=== PATIENT | female | born 1945 | race Caucasian/White ===

== ENCOUNTER → 2021-12-05 08:57 | Outpatient (BNVA) | payer MEDICARE, SELFPAY | PROVIDERS: PCP Internal Medicine; Visit Provider Psychiatry & Neurology Neurology | DX: R25.1 Tremor, unspecified (principal); R26.9 Unspecified abnormalities of gait and mobility; M47.812 Spondylosis without myelopathy or radiculopathy, cervical region; M47.816 Spondylosis without myelopathy or radiculopathy, lumbar region | CPT/HCPCS: 99202 ==

== ENCOUNTER → 2022-01-05 09:36 | Outpatient (BNVA) | payer MEDICARE, SELFPAY | PROVIDERS: PCP Internal Medicine; Visit Provider Psychiatry & Neurology Neurology | DX: M47.812 Spondylosis without myelopathy or radiculopathy, cervical region (principal); M47.816 Spondylosis without myelopathy or radiculopathy, lumbar region; R25.1 Tremor, unspecified; R26.9 Unspecified abnormalities of gait and mobility; Z79.899 Other long term (current) drug therapy | CPT/HCPCS: 99212 ==

== ENCOUNTER → 2022-06-27 09:28 | Outpatient (BNVA) | payer MEDICARE, SELFPAY | PROVIDERS: PCP Internal Medicine; Visit Provider Psychiatry & Neurology Neurology | DX: R25.1 Tremor, unspecified (principal); R26.9 Unspecified abnormalities of gait and mobility; M47.812 Spondylosis without myelopathy or radiculopathy, cervical region; M47.816 Spondylosis without myelopathy or radiculopathy, lumbar region | CPT/HCPCS: 99212 ==

== ENCOUNTER 2023-06-26 11:00 | Outpatient (AMB) | payer MEDICARE, SELFPAY ==
--- NOTE | 2023-06-26 11:03 | A.OFFVIS_ITS ---
Intake Vital Signs 06/26/23 11:04 Height 4 ft 11.5 in Weight 121 lb 4 oz BMI 24.1 BP 136/82 Blood Pressure Location Lt brachial Position Sitting Respiration 14 Pulse 75 Pulse Source Pulse Oximeter Pulse Oximetry (%) 99 Oxygen Delivery Method Room Air Intake Visit Reasons: 1 yr f/u appt/Lvm Intake Note: Pt presents to office for one year follow up for tremors. She reports her symptoms have improved. She reports she barely has tremors anymore. SHe requests refills on Citalopram and Gabapentin today. Allergies amoxicillin Allergy (Verified 06/26/23 11:04) Hives azithromycin Allergy (Verified 06/26/23 11:04) Hives clindamycin Allergy (Verified 06/26/23 11:04) Diarrhea Penicillins Allergy (Verified 06/26/23 11:04) Hives Medication List - Last Reconciled 06/26/23 by Linh Velasco MD aspirin (Adult Low Dose Aspirin) 81 mg PO DAILY atorvastatin 40 mg PO DAILY calcium carbonate-vitamin D3 600 mg-10 mcg (400 unit) caps PO cholecalciferol (vitamin D3) 25 mcg PO DAILY citalopram 10 mg PO DAILY clopidogrel 0 mg PO estradiol 0.5 mg PO DAILY fluticasone propion-salmeterol 250-50 mcg/dose (Advair Diskus) 1 ea inhalation BID gabapentin 300 mg (3 x 100 mg) PO BEDTIME medroxyprogesterone 2.5 mg PO DAILY oxybutynin chloride 10 mg PO DAILY PRN HPI HPI Comments History of Present Illness Details 78-year-old right-handed female with history of cervical and lumbar spinal stenosis comes for follow up of her tremors. she is on gabapentin 300mg qhs . Her tremor shave improved mild intermittent in her hands . Her mood is stable on citalopram .. Her back pain is episodic less frequent.No leg pain . Balance is OK . [facility] Medical History Gait disorder Cervical spondylosis Lumbar spondylosis Sciatica Hyperlipidemia Depression Anxiety Bladder cancer PSVT (paroxysmal supraventricular tachycardia) COPD (chronic obstructive pulmonary disease) Surgical History Status post femorofemoral bypass surgery History of bladder surgery Hx of cataract surgery Family History Father Renal disease COPD (chronic obstructive pulmonary disease) Arthritis Mother Arthritis A-fib Brother A-fib Diabetes Renal hypertension Child No Financial Resp Breast cancer Non-alcoholic fatty liver disease Social History Household Members: None Alcohol intake: current Alcohol intake frequency: does not drink Patient Tobacco Use Status: Current everyday Tobacco user Cigarettes Per Day: 6 Current occupational status: retired Physical Exam Vital Signs: Last Vital Signs Pulse 75 06/26/23 11:04 Resp 14 06/26/23 11:04 BP 136/82 06/26/23 11:04 Pulse Ox 99 06/26/23 11:04 Oxygen Delivery Method Room Air 06/26/23 11:04 BMI result Body Mass Index 24.1 Const General: cooperative, healthy appearing, comfortable and no acute distress Nutritional Appearance: average body habitus Orientation/consciousness: patient oriented x3 HEENT Other: decreased range of motion in the neck Neuro Other: No head tremors today No voice tremors very mild tam action tremors No rest tremors or postural tremors General: patient oriented x3, gait normal, tone normal and no focal motor deficits Cranial nerves: Yes CN's II-XII intact bilaterally Motor exam (neuro): 5/5 motor strength present throughout Assessment & Plan Assessment & Plan (1) Tremors of nervous system: Code(s): R25.1 - Tremor, unspecified (2) Gait disorder: Code(s): R26.9 - Unspecified abnormalities of gait and mobility (3) Cervical spondylosis: Code(s): M47.812 - Spondylosis without myelopathy or radiculopathy, cervical region (4) Lumbar spondylosis: Code(s): M47.816 - Spondylosis without myelopathy or radiculopathy, lumbar region Plan gabapentin 300mg qhs continue neck exercises Coding Level of Care Code Est Pt Level 4 (01769) Diagnoses Tremors of nervous system R25.1 Gait disorder R26.9 Cervical spondylosis M47.812 Lumbar spondylosis M47.816
[2023-06-26 11:04] VITALS: BP 136/82; PULSE 75; RESP 14; O2SAT 99; BMI 24.1
== END 2023-06-26 11:33 | disposition home or self-care (01) ==
PROVIDERS: Visit Provider Psychiatry & Neurology Neurology
DX: R25.1 Tremor, unspecified (principal); R26.9 Unspecified abnormalities of gait and mobility; M47.812 Spondylosis without myelopathy or radiculopathy, cervical region; M47.816 Spondylosis without myelopathy or radiculopathy, lumbar region
CPT/HCPCS: 99214

== ENCOUNTER → 2023-06-26 11:00 | Outpatient (BNVA) | payer MEDICARE, SELFPAY | PROVIDERS: Visit Provider Psychiatry & Neurology Neurology | DX: R25.1 Tremor, unspecified (principal); R26.9 Unspecified abnormalities of gait and mobility; M47.812 Spondylosis without myelopathy or radiculopathy, cervical region; M47.816 Spondylosis without myelopathy or radiculopathy, lumbar region | CPT/HCPCS: 99212 ==

== ENCOUNTER 2024-06-30 08:55 | Outpatient (AMB) | payer MEDICARE, SELFPAY ==
--- NOTE | 2024-06-30 08:57 | MHC.OFFVIS ---
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 Accompanied by: Self / Same As Patient Allergies amoxicillin Allergy (Verified 06/30/24 09:01) Hives azithromycin Allergy (Verified 06/30/24 09:01) Hives clindamycin Allergy (Verified 06/30/24 09:01) Diarrhea Penicillins Allergy (Verified 06/30/24 09:01) Hives Medication List - Last Reconciled 06/30/24 by Linh Velasco MD aspirin (Adult Low Dose Aspirin) 81 mg PO DAILY atorvastatin 40 mg PO DAILY calcium carbonate-vitamin D3 600 mg-10 mcg (400 unit) caps PO DAILY cholecalciferol (vitamin D3) 25 mcg PO DAILY citalopram 10 mg PO DAILY fluticasone propion-salmeterol 250-50 mcg/dose (Advair Diskus) 1 ea inhalation BID gabapentin 1 cap qam and 3 caps qhs orally bedtime; mirabegron ER (Myrbetriq) 50 mg PO DAILY HPI Comments Details: 79-year-old right-handed female with history of cervical and lumbar spinal stenosis comes for follow up of her tremors. she is on gabapentin 300mg qhs .Her daughter noticed more head tremors. Her tremors are intermittent and depends on her anxiety level. she is independent in all her ADLs. Her mood is stable on citalopram .. Her back pain is episodic and depend son her activities . Balance has worsened.. [facility] Medical History Gait disorder Cervical spondylosis Lumbar spondylosis Sciatica Hyperlipidemia Depression Anxiety Bladder cancer PSVT (paroxysmal supraventricular tachycardia) COPD (chronic obstructive pulmonary disease) Surgical History Status post femorofemoral bypass surgery History of bladder surgery Hx of cataract surgery Family History Father Renal disease COPD (chronic obstructive pulmonary disease) Arthritis Mother Arthritis A-fib Brother A-fib Diabetes Renal hypertension Child No Financial Resp Breast cancer Non-alcoholic fatty liver disease Social History Household Members: None Alcohol intake: current Alcohol intake frequency: does not drink Patient Tobacco Use Status: Current everyday Tobacco user Cigarettes Per Day: 6 Current occupational status: retired Physical Exam Vital Signs: Last Vital Signs Pulse 69 06/30/24 09:01 BP 130/80 06/30/24 09:01 Pulse Ox 95 06/30/24 09:01 Oxygen Delivery Method Room Air 06/30/24 09:01 BMI result Body Mass Index 23.9 Const General: cooperative, healthy appearing, comfortable and no acute distress Nutritional Appearance: average body habitus Orientation/consciousness: patient oriented x3 HEENT Other: decreased range of motion in the neck Neuro Other: mild head tremors today mild voice tremors Mild tam postural action tremors No rest tremors gait-leaned towards left General: patient oriented x3, tone normal and no focal motor deficits Cranial nerves: Yes CN's II-XII intact bilaterally Motor exam (neuro): 5/5 motor strength present throughout Assessment & Plan Assessment & Plan (1) Tremors of nervous system: Code(s): R25.1 - Tremor, unspecified Category: Medical (2) Gait disorder: Code(s): R26.9 - Unspecified abnormalities of gait and mobility Category: Medical (3) Cervical spondylosis: Code(s): M47.812 - Spondylosis without myelopathy or radiculopathy, cervical region Category: Medical (4) Lumbar spondylosis: Code(s): M47.816 - Spondylosis without myelopathy or radiculopathy, lumbar region Category: Medical Plan Increase gabapentin 100mg qam and gabapentin 300mg qhs citalopram 10mg qd continue neck exercises Medications: Changed From gabapentin 300 mg (3 x 100 mg) PO BEDTIME 90 caps 6RF To gabapentin 1 cap qam and 3 caps qhs orally bedtime; 120 caps 6RF Refilled citalopram 10 mg PO DAILY 90 tabs 3RF gabapentin 1 cap qam and 3 caps qhs orally bedtime; 120 caps 6RF citalopram 10 mg PO DAILY 90 tabs 3RF Coding Level of Care Code Est Pt Level 4 (26627) Complex EM visit Add On G2211 Diagnoses Tremors of nervous system R25.1 Gait disorder R26.9 Cervical spondylosis M47.812 Lumbar spondylosis M47.816
[2024-06-30 09:01] VITALS: BP 130/80; PULSE 69; O2SAT 95; BMI 23.9
== END 2024-06-30 09:26 | disposition home or self-care (01) ==
PROVIDERS: PCP Internal Medicine; Visit Provider Psychiatry & Neurology Neurology
DX: R25.1 Tremor, unspecified (principal); R26.9 Unspecified abnormalities of gait and mobility; M47.812 Spondylosis without myelopathy or radiculopathy, cervical region; M47.816 Spondylosis without myelopathy or radiculopathy, lumbar region
CPT/HCPCS: 99214; G2211

== ENCOUNTER → 2024-06-30 08:55 | Outpatient (BNVA) | payer MEDICARE, SELFPAY | PROVIDERS: PCP Internal Medicine; Visit Provider Psychiatry & Neurology Neurology | DX: R25.1 Tremor, unspecified (principal); R26.9 Unspecified abnormalities of gait and mobility; M47.812 Spondylosis without myelopathy or radiculopathy, cervical region; M47.816 Spondylosis without myelopathy or radiculopathy, lumbar region; F41.9 Anxiety disorder, unspecified | CPT/HCPCS: 99212 ==

== ENCOUNTER 2025-06-30 10:00 | Outpatient (AMB) | payer MEDICARE, SELFPAY ==
[2025-06-30 10:02] VITALS: BP 122/64; PULSE 67; O2SAT 97; BMI 23.3
--- NOTE | 2025-06-30 10:02 | A.OFFVIS_ITS ---
Vital Signs 06/30/25 10:02 Height 4 ft 11 in Weight 115 lb 6 oz BMI 23.3 BP 122/64 Blood Pressure Location Rt brachial Position Sitting Pulse 67 Pulse Source Pulse Oximeter Pulse Oximetry (%) 97 Oxygen Delivery Method Room Air Intake Visit Reasons: 1 yr f/u for Tremor upper extremity Intake Note: 1yr follow up for tremor upper extremity Irrigator Overhead Required: No Accompanied by: Self / Same As Patient Allergies amoxicillin Allergy (Verified 06/30/25 10:02) Hives azithromycin Allergy (Verified 06/30/25 10:02) Hives clindamycin Allergy (Verified 06/30/25 10:02) Diarrhea Penicillins Allergy (Verified 06/30/25 10:02) Hives Medication List - Last Reconciled 06/30/25 by Linh Velasco MD aspirin (Adult Low Dose Aspirin) 81 mg PO DAILY atorvastatin 40 mg PO DAILY calcium carbonate-vitamin D3 600 mg-10 mcg (400 unit) caps PO DAILY cholecalciferol (vitamin D3) 25 mcg PO DAILY citalopram 10 mg PO DAILY fluticasone propion-salmeterol 250-50 mcg/dose (Advair Diskus) 1 ea inhalation BID gabapentin 1 cap qam and 3 caps qhs orally bedtime; oxybutynin chloride ER 10 mg PO DAILY HPI Comments Details: 80-year-old right-handed female with history of cervical and lumbar spinal lissette nosis comes for follow up of her tremors. she is on gabapentin 300mg qhs and 100mg qam Tremors are stable Her tremors are intermittent and depends on her anxiety level. she is independent in all her ADLs. Her mood is stable on citalopram .. Her back pain is episodic and depends on her activities . Balance has worsened..No falls. usually has near falls - especially when she turns. [facility] Medical History Gait disorder Cervical spondylosis Lumbar spondylosis Sciatica Hyperlipidemia Depression Anxiety Bladder cancer PSVT (paroxysmal supraventricular tachycardia) COPD (chronic obstructive pulmonary disease) Surgical History Status post femorofemoral bypass surgery History of bladder surgery Hx of cataract surgery Family History Father Renal disease COPD (chronic obstructive pulmonary disease) Arthritis Mother Arthritis A-fib Brother A-fib Diabetes Renal hypertension Child No Financial Resp Breast cancer Non-alcoholic fatty liver disease Social History Household Members: None Alcohol intake: current Alcohol intake frequency: does not drink Patient Tobacco Use Status: Current everyday Tobacco user Cigarettes Per Day: 6 Current occupational status: retired Physical Exam Vital Signs: Last Vital Signs Pulse 67 06/30/25 10:02 BP 122/64 06/30/25 10:02 Pulse Ox 97 06/30/25 10:02 Oxygen Delivery Method Room Air 06/30/25 10:02 BMI result Body Mass Index 23.3 Const General: cooperative, healthy appearing, comfortable and no acute distress Nutritional Appearance: average body habitus Orientation/consciousness: patient oriented x3 HEENT Other: decreased range of motion in the neck Neuro Other: mild head tremors today mild voice tremors Mild tam postural action tremors No rest tremors gait-leaned towards left General: patient oriented x3, tone normal and no focal motor deficits Cranial nerves: Yes CN's II-XII intact bilaterally Motor exam (neuro): 5/5 motor strength present throughout Assessment & Plan Assessment & Plan (1) Tremors of nervous system: Code(s): R25.1 - Tremor, unspecified Category: Medical (2) Gait disorder: Code(s): R26.9 - Unspecified abnormalities of gait and mobility Category: Medical (3) Cervical spondylosis: Code(s): M47.812 - Spondylosis without myelopathy or radiculopathy, cervical region Category: Medical (4) Lumbar spondylosis: Code(s): M47.816 - Spondylosis without myelopathy or radiculopathy, lumbar region Category: Medical Plan gabapentin 100mg qam and gabapentin 300mg qhs citalopram 10mg qd continue neck exercises PT for gait OT for hand Orders: Orders PT Evaluation and Treatment 06/30/25 R26.9 - Unspecified abnormalities of gait and mobility OT Evaluation and Treatment 06/30/25 R25.1 - Tremor, unspecified Medications: Refilled gabapentin 1 cap qam and 3 caps qhs orally bedtime; 120 caps 6RF Coding Level of Care Code Est Pt Level 4 (62210) Complex EM visit Add On G2211 Diagnoses Tremors of nervous system R25.1 Gait disorder R26.9 Cervical spondylosis M47.812 Lumbar spondylosis M47.816
--- OUTSIDE RECORDS SUMMARY | 2025-06-30 12:07 | XMS_ITS | Data Portability ---
Author Organization [place] - [facility],, LUCIA HUFFMAN MD Address [address] [facility] [address] [place] [address] Care Team Providers Care Art Dealer Name Role Phone CHARLES HINSON Primary Care Provider Assessment No assessment recorded. Plan of Treatment Reminders Order Date Submit Date Provider Last Modified By Organization Details Last Modified Time Details Appointments None recorded. Lab cytology report, thin prep, smear or scraping, cervical or vaginal 2024 025 [place] [facility] (Centralized Electronic Ordering - All Locations), Patient Can Go To The Location Of Their Choice, [address] 5 14:16:55 pap test, thinprep, cervical 2022 023 [email or web address] [facility] (Centralized Electronic Ordering - All Locations), Patient Can Go To The Location Of Their Choice, [address] 3 07:25:31 pap test, thinprep, cervical 2020 021 [email or web address] [facility], Cytopathology Service, [address] [place], [address], 1 07:37:39 Referral None recorded. Procedures None recorded. Surgeries None recorded. Imaging MAMMO, screening , digital, bilateral - Breast Aspiratio n and/or Biopsy if needed 2024 025 [facility] ([place] [facility]), [address] [place], [address], 5 12:02:32 bone density 2024 025 [facility] ([place] [facility]), [address] [place], [address], 5 12:02:33 MAMMO, screening , digital, bilateral - Breast Aspiratio n and/or Biopsy if needed 2022 023 [facility] ([place] [facility]), [address], [address], 5 07:02:46 bone density 2022 023 [facility] ([place] [facility]), [address] [facility] [place], [address], 4 18:34:58 MAMMO, screening , digital, bilateral 2020 021 [facility] ([place] [facility]), [address] [facility] [place], [address], 2 23:18:01 bone density 2020 021 [facility] ([place] [facility]), [address] [place], [address], 2 18:56:53 Medication Orders estradiol 0.5 mg tablet 2020 021 [facility], [address] [place], [address], 3 08:42:47 medroxypr ogesteron e 2.5 mg tablet 2020 021 [facility], [address] [place], [address], 3 08:42:58 Patient TargetsNo targets recorded. Patient Instructions Encounter Date Encounter Id Patient Instructions Last Modified By Organization Details Last Modified Time 05/16/2021 [id number] atrophic vaginit is: care instructions Not available 05/16/2021 10:03:42 atrophic vaginit is: care instructions Not available 05/16/2021 10:03:42 learning about healthy weight [email or web address] Not available 05/16/2021 10:03:42 She is here for annual exam, had switched from full dose HRT, 4 times a week, to low dose HRT daily, and this is holding her well, she is not depressed or suicidal on this dose, she elects to continue this. She has developed mild rectal incontinence, is to see a specialist next month. She has regular dermatology exams, regular cystoscopy for follow up of her low malignant potential bladder tumor removed in 2018. Her daughter developed breast cancer treated with lumpectomy and RTx 18 months ago, her daughter is BRCA negative. __ Note from 2019: She is here for annual exam, she is taking HRT 4 days a week, notes this controls her anxiety and other symptoms, she had weaned off for a month, two years ago, to see if she could tolerate being off the HRT, But I got suicidal so I started again! and her suicidal thougths, completely went away, She has noted wrosening of her urinary urgency starting around 2 years ago, but over the past 3-4 few months it has worsned to the point that If I get up from lying down then it jsut starts coming out nad I can't stop it, a lot of urine. This has david happening every day for a month or two. She had a negative cystoscopy 3 weeks ago, in follow up of her low malignant potential bladder tumor surgically removed 4 years ago. She had 6 pound babies and does not recall trauma or a 3rd or 4th degree tear. However she ad years of straining with constipation. Now she has poor rectal tone and is starting to lose watery stool. she is to see a specialist next month. She is taught Kegels and advised to do 100 daily. She appears to be doing well. We discussed having her continue to take hormone replacement therapy. We discussed the need to take a progestin if a uterus is present, and the rationale behind that. We discussed the stated risks of one in 10,000 of development of a blood clot/DVT/PE that could be life threatening. We discussed the Women's Health Initiative study and the findings. We discused the PEPPI study as well. She is aware that there are conflicting reports in the medical literature concerning the risks and benefits of HRT. We disussed that women are advised by ACOG to take HRT in the lowest dose necessary, and for the shortest time necessary, to control their symptoms. After a long discussion of the potential risks and benefits of HRT she elects to continue HRT. All questions were answered. Rx for HRT is called in to the pharmacy. Call if any vaginal bleeding occurs upon initiation of HRT, or at any time postmenopausally. Not available 05/16/2021 10:03:28 10/20/2021 [id number] deciding about using medicines to quit smoking Not available 10/20/2021 09:47:18 Quitting Tobacco : [email or web address] Not available 10/20/2021 09:47:18 This visit is a phone telehealth visit. The patient consented to the visit by phone. The patient was at home at the time of the call and the provider and patient were the only people on the line. I was at [address] [facility], [address], [place], [place], at the time of the call. We are discussing her recent bone density that showed osteopenia of the hip, this is new. Her hip T score was -0.9 in 2013, which was similar to 2011, but now it is -1.7. She has been taking estradiol 0.5 mg tabs daily, since 2012. She does take a calcium supplement in the am, but does not really pay attention to how much calcium she is getting in her diet daily. She is a current every day smoker. We discussed her new diagnosis of osteopenia. We reviewed the results of her bone density test, with reference to the computer images. We discussed the way that standard deviation is used for diagnosis, and what this means to her as she ages. Adequate calcium intake of 1500 mg daily, weight bearing exercise three times a week, and vitamin D supplementation of at least 400 units daily is suggested. She is advised to avoid tobacco, coffee, and steroids if possible. Benefits of an active lifestyle discussed as well. All questions answered. We discussed the different forms of medical treatment for osteoporosis, in case she might need this in the future. She will repeat the bone density testing in 2 years to assess her progress.She is aware that if her bone density diminished significantly in the intervening 2 years she may need medical therapy at that time. She is encouraged to try this preventive therapy first. Return for routine annual exam as scheduled. Tobacco use can increase risks of osteoporosis. While the ERT is helpful in this regard, the tobacco is deleterious. She is smoking 1/4 PPD. Literature about smoking cessation is given to patient, put on her portal. The patient was agreeable to this plan. She is aware of the limitations caused by the covid restrictions, and this phone call. Face to face discussion for 30 minutes. Not available 10/20/2021 09:49:49 05/17/2023 [id number] atrophic vaginit is: care instructions Not available 05/17/2023 09:01:09 learning about healthy weight Not available 05/17/2023 09:01:09 She is here for annual, doing well. She stopped her half dose HRT last year and is doing well off of it. Note from 2020: She is here for annual exam, had switched from full dose HRT, 4 times a week, to low dose HRT daily, and this is holding her well, she is not depressed or suicidal on this dose, she elects to continue this. She has developed mild rectal incontinence, is to see a specialist next month. She has regular dermatology exams, regular cystoscopy for follow up of her low malignant potential bladder tumor removed in 2018. Her daughter developed breast cancer treated with lumpectomy and RTx 18 months ago, her daughter is BRCA negative. She appears to be doing well. Monthly self breast exam was taught, and stressed, and is advised to call if she discovers any new mass in the breast. Not available 05/17/2023 09:01:24 12/10/2024 [id number] She is here for a complaint of a lump on her rectum.It has bene present for 3 to 5 months. It is slowly enlarging. She has not been here since 05/2023. ____ Note from 05/2023: She is here for annual, doing well. She stopped her half dose HRT last year and is doing well off of it. On exam: She has more than 10, impacted, sebaceous cysts around the perirectal area, a few mm each, with a black, hard core. There is a 9 mm cyst with hard black material within, and white sebaceous material, at the lower right edge of anus. This is the mass that is bothering her. Procedure note: The perirectal area was painted with betadine. Using digital pressure approximately 1 cc of white sebaceous material was extruded through the dilated pore, she tolerated well. On the left side there is a 5 mm, similar mass, this was pressed and the caseous material expressed, as well. She tolerated well. Post procedure care discussed. She is advised she can see a colorectal surgeon to have these cyst sacs surgically removed if she wishes as they will re accumulate over time. Face to face discussion, chart review and coordination of care: 25 minutes Not available 12/10/2024 10:40:26 05/18/2025 [id number] atrophic vaginit is: care instructions Not available 05/18/2025 10:16:23 learning about healthy weight Not available 05/18/2025 10:16:23 She is here for annual, doing well. She is up to date with PCP issues, has some balance issues, I veer to the left sometimes! She will follow up with PCP about this soon. _ Note from 2022: She is here for annual, doing well. She stopped her half dose HRT last year and is doing well off of it. She appears to be doing well. Monthly self breast exam was taught, and stressed, and is advised to call if she discovers any new mass in the breast. Not available 05/18/2025 10:23:19 Reason for Referral None Reported. Results Created Date Observation Date Name Description Value Unit Range Abnormal Flag Note LastModifiedBy Organization Detail LastModifiedTime 05/16/20 21 05/16/2021 PAP1C ASE [email or web address] ThinP rep Pap, Image d: NEGAT MARILUZ FOR SQUAM OUS INTRA EPITH ELIAL LESIO N AND KRISTY PENA . Agusto Tellez a , CT( CP) (Case elect ruben wise lokesh d 05 26 2021) ADEQU ACY: Satis facto ry Endoc ervic al/tr ansfo rmati on zone compo nent prese nt. SOURC E: ThinP rep Pap HPV IF ASCUS , Cervi shahida, Image d CLINI SHAHIDA INFOR MATIO N: HPV If Diagn osis of ASCUS . 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 Satis facto ry for evalu ation . Endoc ervic al/tr ansfo rmati on zone prese nt. Clini shahida Histo ry: Date of Last Menst rual Perio d: not avail able Menst rual Histo ry: Post- menop ausal Contr acept mariluz Histo ry: not avail able Ancil tierney Testi ng: HPV (ASCU S) Case image d by the ThinP rep Imagi ng Syste m with pilar silverman or giuliana donohue Perfo rmed at [facility] ate Refer ence Labor at[facility] Cytol ogy, [address] [place] Clini shahida Histo ry (othe r): z12.4 , lps 05-16 neg, v76.2 Phone #: [phone], On-Ca ll Patho logis t: [id number] Not Available [facility] (Centralized Electronic Ordering - All Locations) Patient Can Go To The Location Of Their Choice, [id number] 05/28/2023 13:24:44 05/18/2005/20/2025 IGP, RFX APTIM A HPV ASCU diagnosis: Radha HOLM MARILUZ FOR INTRA EPITH ELIAL LESIO N OR KRISTY PENA . CELLU LAR CLEMONS ES ASSOC IATED WITH ATROP HY ARE PRESE NT. Not Available [facility] ([facility]) [address] [place], [address], 2025 14:16:55 05/18/2005/20/2025 IGP, RFX APTIM A HPV ASCU specimen adequacy: Radha antony Satis facto ry for evalu ation . Endoc ervic al compo nent may not be disti nguis hed in cases of atrop hy. Not Available [facility] ([facility]) [address] [place], [address], 2025 14:16:55 05/18/2005/20/2025 IGP, RFX APTIM A HPV ASCU clinician provided ICD10: Radha antony Z12.4 Not Available [facility] ([facility]) [address] [place], [address], 2025 14:16:55 05/18/2005/20/2025 IGP, RFX APTIM A HPV ASCU performed by: Radha Arreguin Cytol ogjerardo (ASCP ) Not Available [facility] ([facility]) [address] [place], [address], 2025 14:16:55 05/18/20 25 2025 IGP, RFX APTIM A HPV ASCU . . Not Available [facility] ([facility]) [address], [place], [address], 2025 14:16:55 05/18/20 25 2025 IGP, RFX APTIM A HPV ASCU note: Commen t The Pap smear is a scree ankur test desig german to aid in the detec tion of get ligna nt and malig nant condi tions of the uteri ne cervi x. It is not a diagn ostic proce dure and shoul d not be used as the sole means of detec ting cervi shahida cance r. Both false -posi tive and false -nega tive repor ts do occur . Not Available [facility] ([facility]) [address], [place], [address], 2025 14:16:55 05/18/20 25 2025 IGP, RFX APTIM A HPV ASCU test methodology: Commen t This liqui d based ThinP rep(R ) pap test was scree german with the use of an image guide taran garcia. Not Available [facility] ([facility]) [address], [place], [address], 2025 14:16:55 05/18/20 25 2025 IGP, RFX APTIM A HPV ASCU . Commen t The HPV DNA refle x crite kayla were not met with this speci men resul t there fore, no HPV testi ng was perfo rmed. Not Available [facility] ([facility]) [address], [place], [address], 2025 14:16:55 10/18/19 22 10/18/2021 bone densi ty No observ ation record ed. [email or web address] Not Available 2021 09:56:35 10/24/19 22 10/24/2021 MAMMO , scree ankur, digit al, bilat eral No observ ation record ed. Not Available 10/10 08:04:26 05/17/20 23 10/30/2022 MAMMO , loni pascual, digit al, bilat eral No observ ation record ed. BARCODE Not Available 2022 08:51:12 11/07/19 24 11/07/2023 bone densi ty No observ ation record ed. [email or web address] [address], [address], 11/08/2023 08:29:18 Result Notes None recorded. 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 MD Sylwia Anguiano [address] [place], [address] , [place] - [facility], 5 10:50:18 Tobacco dependenc e syndrome 80114702 Active Not Available [facility] 3 03:01:04 Sebaceous gland duct dilatatio n 774612781 Active Not Available [facility] 3 03:01:04 Vulvitis 79060577 Active MD Sylwia Anguiano [address] [place], [address] , [place] - [facility], 4 12:28:36 Dysuria 36955636 Active MD Sylw[place], [address] , [place] [facility], 4 12:28:36 Malignant neoplasm of urinary bladder 672692673 Active 2016 In 2015 she had low malignant potential bladder tumor surgically removed then had instillati ons of hte bladder, is GERMAN at present. MD Sylwia Anguiano [address] [place], [address] , [place] - [facility], 7 09:11:59 Atrophic vaginitis 59214555 Active 2018 Lucia Huffman MD [address], [place], [address] , [place] - [facility], 9 09:34:08 Family history of malignant neoplasm of breast in first degree relative 312093552 Active 2020 Her daughter developed breast cancer treated with lumpectomy and RTx in 2020, her daughter is BRCA negative. Lucia Huffman MD [address], [place], [address] , [place] - [facility], 1 09:59:39 Disorder of rectum 9542558 Active 2020 rectal incontinen ce, likely due to poor tone Lucia Huffman MD [address], [place], [address] , [place] - [facility], 1 10:01:46 Osteopeni a 965301538 Active 2021 Lucia Huffman MD [address], [place], [address] , [place] - [facility], 2 09:45:55 Problem Notes None recorded. Procedures Surgical History Date Name Laterality Status Provider Name and Address Organization Details Recorded Time 10/30/19 25 Most Recent Mammogram completed Candelaria Clifton in [facility], 12/10/2024 09:31:48 06/07/20 22 femorodistal bypass completed Candelaria Clifton in [facility], 05/17/2023 08:46:22 05/27/20 17 Skin Tag Removal completed Lucia Huffman MD [address], [place], [address], [place] [facility], 05/27/2017 12:42:27 06/21/20 15 Other completed Lucia Huffman MD [address] [facility], [place], [address], [place] Cl[place] in [facility], 05/07/2017 09:12:16 09/09/19 13 Other completed Candelaria Tarshavinnie Clifton in [facility], 09/28/2013 11:36:21 09/09/18 86 Tubal Ligation completed Candelaria Clifton in [facility], 04/29/2012 08:28:17 09/09/18 48 Tonsillectomy completed Candelaria Clifton in [facility], 04/29/2012 08:28:17 Imaging Results None recorded. Procedure Notes None recorded. Medical Equipment None Reported. Allergies Allergen ID Allergen Name Allergen Category Reaction Reaction Severity Criticality Documentation Date Start Date Code Code System Note Provider Name and Address Organization Details Recorded Time 79169 clindamyc in Not available rash Not available high 05/17/2023 2582 RxNorm cdiff ..... ended up in hospi tariq [place] in [facility], 3 08:38:50 3521 Product containin g penicilli n (product) medicatio n hives Not available Not available 04/29/2012 92506 8001 SNOMED [place] Cormier in [facility], 2 08:28:17 3522 Flagyl medicatio n hives Not available Not available 04/29/2012 33980 6 RxNorm [place] Cormier in [facility], 2 08:28:17 Medications Name Sig Start Date Stop Date Status Note LastModified by Organization Details LastModified Time atorvastat in 40 mg tablet TAKE 1 TABLET BY MOUTH EVERY NIGHT AT BEDTIME active Not Available Not Available No t Available fluticason e 250 mcg-salmet stephen 50 mcg/dose blistr powdr for inhalation INHALE 1 PUFF BY MOUTH TWICE DAILY. RINSE MOUTH WITH WATER AFTER USE FOR AFTERTAS TE AND INCIDENC E OF CANDIDIA SIS. DO NOT SWALLOW active Not Available Not Available No t Available prednisone 10 mg tablet TAKE 4 TABLETS BY MOUTH DAILY X2DAYS THEN 3 TABLETS X1DAY THEN 2 TABLETS X 1DAY THEN 1 TABLET X3DAYS 12/10 completed Not Available Not Available Not Available doxycyclin e hyclate 100 mg capsule TAKE 1 CAPSULE BY MOUTH EVERY 12 HOURS FOR 5 DAYS 05/18 completed Not Available Not Available Not Available esterified estrogens- methyltest osterone 0.625 mg-1.25 mg tablet TAKE ONE TABLET(S ) EVERY DAY 05/07 completed Not Available Not Available Not Available clindamyci n HCl 300 mg capsule 06/27 completed Not Available Not Available Not Available cetirizine 10 mg tablet TAKE 1 TABLET BY MOUTH DAILY 05/15 completed Not Available Not Available Not Available cefpodoxim e 200 mg tablet TAKE 1 TABLET BY MOUTH EVERY 12 HOURS FOR 10 DAYS 12/10 completed Not Available Not Available Not Available oxybutynin chloride ER 10 mg tablet,ext ended release 24 hr TAKE 1 TABLET BY MOUTH EVERY DAY active Not Available Not Available No t Available citalopram 10 mg tablet TAKE 1 TABLET BY MOUTH DAILY active Not Available Not Available No t Available medroxypro gesterone 2.5 mg tablet TAKE 1 TABLET BY MOUTH ONCE DAILY 05/17 completed Not Available Not Available Not Available meloxicam 15 mg tablet 05/07 completed Not Available Not Available Not Available prednisone 20 mg tablet TAKE 2 TABLETS BY MOUTH DAILY FOR 4 DAYS 05/18 completed Not Available Not Available Not Available clonazepam 0.5 mg tablet active Not Available Not Available Not Available clindamyci n HCl 150 mg capsule TAKE 1 CAPSULE 3 TIMES A DAY 05/07 completed Not Available Not Available Not Available acetaminop hen 300 mg-codeine 30 mg tablet TAKE ONE TABLET BY MOUTH EVERY 4-6 HOURS NEEDED FOR PAIN 05/07 completed Not Available Not Available Not Available clopidogre l 75 mg tablet TAKE 2 TABLETS BY MOUTH TONIGHT THEN TAKE ONE TABLET BY MOUTH EVERY DAY 05/17 completed Not Available Not Available Not Available sulfametho xazole 800 mg-trimeth oprim 160 mg tablet 05/07 completed Not Available Not Available Not Available doxycyclin e monohydrat e 100 mg tablet TAKE 1 TABLET BY MOUTH TWICE A DAY 06/27 completed Not Available Not Available Not Available vancomycin 125 mg capsule 06/27 completed Not Available Not Available Not Available citalopram 20 mg tablet TAKE ONE TABLET BY MOUTH EVERY DAY 05/17 completed Not Available Not Available Not Available prednisolo ne acetate 1 % eye drops,susp ension active Not Available Not Available Not Available Vitamin C 1,000 mg tablet active Not Available Not Available Not Available estradiol 1 mg tablet TAKE 1 TABLET BY MOUTH ONCE A DAY 05/16 completed Not Available Not Available Not Available meclizine 25 mg tablet active Not Available Not Available Not Available benzonatat e 100 mg capsule TAKE 1 CAPSULE 3 TIMES A DAY NEEDED FOR COUGH 06/27 completed Not Available Not Available Not Available doxycyclin e monohydrat e 100 mg capsule 05/15 completed Not Available Not Available Not Available triamcinol one acetonide 55 mcg nasal spray aerosol 05/07 completed Not Available Not Available Not Available Refresh Classic (PF) 1.4 %-0.6 % eye drops in a dropperett e 05/15 completed Not Available Not Available Not Available azithromyc in 100 mg/5 mL oral suspension 06/27 completed Not Available Not Available Not Available clindamyci n 2 % vaginal cream Insert 1 applicat orful every day by vaginal route at bedtime for 7 days. active Not Available Not Available No t Available hydroxyzin e HCl 25 mg tablet TAKE 1 TABLET BY MOUTH THREE TIMES A DAY NEEDED FOR ITCHING. 05/07 completed Not Available Not Available Not Available Baby Aspirin 81 mg chewable tablet Chew 1 tablet every day by oral route. active Not Available Not Available No t Available gabapentin 100 mg capsule TAKE 1 CAPSULE BY MOUTH EVERY MORNING AND 3 CAPSULES BY MOUTH EVERY NIGHT AT BEDTIME active Not Available Not Available No t Available estradiol 0.5 mg tablet TAKE 1 TABLET BY MOUTH ONCE DAILY 05/17 completed Not Available Not Available Not Available azelastine 137 mcg (0.1 %) nasal spray SPRAY TWO PUFFS IN THE AFFECTED NOSTRIL TWICE A DAY IN EACH NOSTRIL DIRECTED active Not Available Not Available No t Available estradiol 0.01% (0.1 mg/gram) vaginal cream INSERT 0.5 GRAMS VAGINALL Y EVERY DAY 06/27 completed Not Available Not Available Not Available albuterol sulfate HFA 90 mcg/actuat ion aerosol inhaler INHALE 2 PUFFS EVERY 4 HOURS NEEDED active Not Available Not Available No t Available hydroxyzin e HCl 10 mg tablet 06/27 completed Not Available Not Available Not Available cefdinir 300 mg capsule TAKE 1 CAPSULE BY MOUTH EVERY 12 HOURS FOR 7 DAYS 12/10 completed Not Available Not Available Not Available fluticason e propionate 50 mcg/actuat ion nasal spray,susp ension INSTILL 1 SPRAY INTO EACH NOSTRIL ONCE DAILY AT BEDTIME active Not Available Not Available No t Available sertraline 50 mg tablet 05/15 completed Not Available Not Available Not Available doxycyclin e hyclate 100 mg tablet TAKE 1 TABLET BY MOUTH TWICE DAILY 05/18 completed Not Available Not Available Not Available metronidaz ole 375 mg capsule FOR TESTING IN ALLERGY OFFICE. DO NOT TAKE AT HOME. 06/27 completed Not Available Not Available Not Available naproxen 500 mg tablet 05/07 completed Not Available Not Available Not Available Vigamox 0.5 % eye drops active Not Available Not Available Not Available Spiriva with HandiHaler 18 mcg and inhalation capsules INHALE THE CONTENTS OF 1 CAPSULES THROUGH THE SPIRIVA DEVICE EVERY MORNING 05/15 completed Not Available Not Available Not Available nitrofuran toin monohydrat e/macrocry stals 100 mg capsule 06/27 completed Not Available Not Available Not Available bromfenac 0.09 % eye drops active Not Available Not Available Not Available melatonin 06/27 completed Not Available Not Available Not Available calcium active 1200 mg Not Available Not Avai lable Not Available Vitamin D3 active Takes in the winter Not Available Not Available Not Available Daily Multi-Marisol min 06/27 completed Not Available Not Available Not Available Gavilyte-C 240 gram-22.72 gram-6.72 gram-5.84 gram oral solution 06/27 completed Not Available Not Available Not Available Ivy Allergy 05/18 completed as needed Not Available Not Available Not Available Myrbetriq 50 mg tablet,ext ended release TAKE 1 TABLET BY MOUTH ONCE DAILY 12/10 completed Not Available Not Available Not Available Anoro Ellipta 62.5 mcg-25 mcg/actuat ion powder for inhalation INHALE ONE PUFF BY MOUTH EVERY DAY 05/16 completed Not Available Not Available Not Available Probiotic (S.boulard ii) 250 mg capsule TAKE ONE CAPSULE BY MOUTH TWICE A DAY 05/16 completed Not Available Not Available Not Available Vitals Date Recorded Body height Provider Name an d Address Organization Details Last Updated DateTime 10/20/2021 149.86 cm Candelaria Taylor MA - [facility], 10/20/2021 09:09:46 Date Recorded Body height Body mass index (BMI) Body weight Body temperature Heart rate Systolic And Diastolic Provider Name and Address Organization Details Last Updated DateTime 5 148.59 cm 24.1 kg/m2 67945.0 3 g 97.8 [degF] 81 /min 165/78 mm[Hg] Candelaria Taylor MA - [facility] in [facility], 5 09:29:02 Date Recorded Body height Body mass index (BMI) Body weight Body temperature Heart rate Systolic And Diastolic Provider Name and Address Organization Details Last Updated DateTime 149.86 cm 25.7 kg/m2 16768.9 5 g 97.6 [degF] 78 /min 135/68 mm[Hg] Candelaria Taylor MA - [place] in [facility], 09:27:22 Date Recorded Body weight Body mass index (BMI) Body height Heart rate Systolic And Diastolic Provider Name and Address Organization Details Last Updated DateTime 05/17/2023 85880.65 g 24.2 kg/m2 149.86 cm 79 /min 139/76 mm[Hg] Candelaria Taylor MA - [facility], 05/17/2023 08:41:00 Date Recorded Body height Body mass index (BMI) Body weight Heart rate Systolic And Diastolic Provider Name and Address Organization Details Last Updated DateTime 05/18/2025 149.86 cm 23.3 kg/m2 79991.84 g 72 /min 140/73 mm[Hg] Candelaria Taylor MA - [facility], 05/18/2025 10:14:04 Social History Question Answer Notes LastModified by Organizat ion Details LastModified Time Tobacco Smoking Status Current Every Day Smoker Not Available [facility] 07/12/2020 03:19:40 How Many Years Have You Consumed Alcohol? 40 Information not available 05/16/2021 What Is Your Level Of Caffeine Consumption? Moderate [id number] Information not available 07/12/2020 In The 14 Days Before Symptom Onset, Have You Had Close Contact With A Laboratory-confir med COVID-19 While That Case Was Ill? No Information not available 05/16/2021 In The 14 Days Before Symptom Onset, Have You Had Close Contact With A Person Who Is Under Investigation For COVID-19 While That Person Was Ill? No Information not available 05/16/2021 Have You Been To An Area Known To Be High Risk For COVID-19? No Information not available 05/16/2021 What Type Of Diet Are You Following? REGULAR [id number] Information not available 07/12/2020 Which Illicit Or Recreational Drugs Have You Used? No [id number] Information not available 07/12/2020 Do You Reside In Or Have You Traveled To An Area Where Ebola Virus Transmission Is Active? 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 [id number] Information not available 05/16/2021 How Many Days In The Past Year Have You Had A Heavy Drinking Consumption (4+ Female, 5+ Male)? 0 Information no t available 05/07/2017 Are There Any Guns Present In Your Home? No Information not available 05/16/2021 High Number Of Sexual Partners No Information not available 05/07/2017 To Which Gender Do You Self-identify? Female Information not available 05/07/2017 Marital Status Informatio n not available 04/29/2012 What Was The Date Of Your Most Recent Tobacco Screening? 05/18/2025 Information not available 05/18/2025 What Is Your Relationship Status? Information not available 05/16/2021 Are You Sexually Active? No [id number] Information not available 07/12/2020 At What Age Did You Start Smoking Tobacco? 30 Information not available 05/16/2021 How Much Tobacco Do You Smoke? 0.25 PPD Information not available 10/20/2021 General Stress Level Medium Information not available 04/29/2012 How Many Years Have You Smoked Tobacco? 45 [id number] Information not available 07/12/2020 Have You Recently (within The Last 12 Weeks, Or During A Current ) Traveled To Or Lived In A Zika-affected Area? No Information not available 05/07/2017 How Many Days In The Past Year Have You Consumed 4 Or More Drinks? 0 Information no t available 05/16/2021 Sex: Female Functional Status Question Answer Note LastModified by Organizat ion Details LastModified Time Do you use any illicit or recreational drugs? No Information not available 05/16/2021 Do you or have you ever used any other forms of tobacco or nicotine? Yes gum Information not available 05/16/2021 What is your level of alcohol consumption? Occasional [id number] Information not available 07/12/2020 Do you or have you ever used smokeless tobacco? Never used smokeless tobacco [id number] Information not available 07/12/2020 Are you currently employed? No Information not available 05/16/2021 What is your occupation? retired Information not available 05/03/2014 Do you or have you ever used e-cigarettes or vape? Never used electronic cigarettes [id number] Information not available 07/12/2020 What is your exercise level? Occasional gardening all summer. [id number] Information not available 07/12/2020 Mental Status Question Answer Note LastModified by Organization D etails LastModified Time Do you feel stressed (tense, restless, nervous, or anxious, or unable to sleep at night)? [id number] Information not available 05/16/2021 Family History Relationship Description Onset Age of this Age Resolved Age Notes LastModified by Organization Details LastModified Time Mother Heart disease previo usly record ed as Heart Proble m Not available 05/05/2015 09:29:18 Mother Problem arthri tis (previ ously record ed as Other) Not available 05/05/2015 09:29:18 Mother Malignant neoplasm of breast at 90 yrs old (previ ously record ed as Breast Cancer ) Not available 05/05/2015 09:29:18 Father Problem arthri tis (previ ously record ed as Other) Not available 05/05/2015 09:29:18 Father Problem triple a (previ ously record ed as Other) Not available 05/05/2015 09:29:18 Father Problem kidney Not availab le 05/05/2015 09:29:18 Daughter Malignant neoplasm of breast [email or web address] Not available 2021 09:12:34 Son Heart disease quadru ple by pass. [email or web address] Not available 05/18/2025 10:07:40 Medical History Condition Response Anesthesia complications N High Blood Pressure N Candidate for MyRisk panel N Autoimmune Condition N Kidney or Bladder Problems Y Thyroid Problems N GI Problems Y Lung Disease Y Depression N Defects or Inherited Disease N History of Ovarian Cancer N Anemia N History of Breast Cancer N TAYLOR exposure N BRCA testing in past N Osteopenia Y Psychiatric Illness N Anxiety Disorder Y Diabetes N Arthritis N Headaches or Migraines N Infertility N Asthma N History of Cancer Y Endometriosis N Hepatitis N Heart Disease N Hypertension N Osteoporosis N Gynecological History Statement/Question Response If Post Menopausal, Age at Menopause 42 Age at Menarche 15 Most Recent Mammogram 10/30/2024 Age at First Child 22 Obstetrics History GPAL:G 4 P 3 0 1 3 Type Value Full Term 3 Spontaneous 1 Living 3 Total 4 Immunizations Vaccine Type Date Status Note Provider Nam e and Address Organization Details Recorded Time COVID-19, mRNA, LNP-S, PF, 100 mcg/0.5mL dose or 50 mcg/0.25mL dose 1 completed Lucia Huffman MD [address], [place], [address], [place] [facility], 10/20/2020 09:23:52 COVID-19, mRNA, LNP-S, PF, 100 mcg/0.5mL dose or 50 mcg/0.25mL dose 1 completed Lucia Huffman MD [address], [place], [address], [place] - [facility], 11/17/2020 09:50:29 COVID-19, mRNA, LNP-S, PF, 100 mcg/0.5mL dose or 50 mcg/0.25mL dose 1 completed Candelaria Meczywor null, [place] - [facility], 12/10/2024 09:28:49 COVID-19, mRNA, LNP-S, bivalent, PF, 50 mcg/0.5 mL or 25mcg/0.25 mL dose 2 completed Candelaria Meczywor null, [place] [facility], 12/10/2024 09:28:49 pneumococcal polysaccharide PPV23 1 completed Candelaria Meczywor null, [place] [facility], 12/10/2024 09:28:49 pneumococcal polysaccharide PPV23 0 completed Candelaria Meczywor null, [place] [facility], 12/10/2024 09:28:49 Td(adult) unspecified formulation 1 completed Candelaria Meczywor null, [place] [facility], 12/10/2024 09:28:49 Tdap 2 completed Candelaria Meczywor null, [place] [facility], 12/10/2024 09:28:49 Pneumococcal conjugate PCV 13 6 completed Candelaria Meczywor null, [place] [facility], 12/10/2024 09:28:49 pneumococcal, unspecified formulation 1 completed Candelaria Meczywor null, [place] [facility], 12/10/2024 09:28:49 Past Encounters Encounter ID Performer Location Encounter Start Date Encounter Closed Date Diagnosis/Indication Diagnosis SNOMED-CT Code Diagnosis ICD10 Code Diagnosis IMO Codes Diagnosis Note [id number] MD LUCIA Anguiano MD [address] [facility] [address] [place] [address] 04/29/2012 08:05:29 04/29/2012 15:48:21 [id number] Lucia MD LUCIA Huffman MD [address] [place] [address],[place] [address] 03/16/2013 15:22:29 03/19/2013 08:39:14 [id number] MD LUCIA Anguiano MD [address] [place] [address],[place] [address] 03/24/2013 08:01:40 03/24/2013 16:18:01 [id number] MD LUCIA Anguiano MD [address] [place] [address],[place] [id number] 05/01/2013 08:54:05 05/01/2013 14:23:29 [id number] MD LUCIA Anguiano MD [address] [place] [address],[place] [address] 09/28/2013 11:23:52 10/01/2013 09:38:40 Dysuria [id number] Vulvitis [id number] MD LUCIA Anguiano MD [address] [place] [address],[place] [address] 05/03/2014 08:37:38 05/03/2014 10:13:51 Screening for malignant neoplasm of cervix 645425072 Screening mammography 28228160 Menopausal syndrome 821196028 [id number] MD LUCIA Anguiano MD [address] [place] [address],[place] [id number] 05/05/2015 08:52:23 05/05/2015 16:03:33 Screening for malignant neoplasm of rectum 490891333 Screening mammography 19598275 Menopausal syndrome 922638546 Screening for malignant neoplasm of cervix 926348214 [id number] MD LUCIA Anguiano MD [address] [place] [address],[place] [id number] 05/07/2017 08:49:31 05/07/2017 11:04:14 Screening for malignant neoplasm of cervix 847292767 Z12.4 Screening mammography 24 204330 Z12.31 Menopausal syndrome 1237 40668 N95.9 Cares for self 807385053 Z76.89 [id number] MD LUCIA Anguiano MD [address] [place] [address], [address] [place] [address] 05/27/2017 09:16:17 05/27/2017 15:21:03 Skin tag 995966052 L91.8 [id number] MD LUCIA Anguiano MD [address] [place] [address],[facility] [place] [id number] 05/15/2019 08:57:54 05/15/2019 11:11:44 Screening for malignant neoplasm of cervix 923100953 Z12.4 Screening mammography 24 559759 Z12.31 Screening for osteoporosis 432773714 Z13.820 Menopausal syndrome 1237 90536 N95.1 Atrophic vaginitis 31029 000 N95.2 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 [id number] MD LUCIA Anguiano MD [address] [place] [address], [place] [address] 06/27/2020 14:52:05 06/27/2020 15:56:54 Menopausal syndrome 659083858 N95.1 [id number] MD LUCIA Anguiano MD [address] [place] [address], [place] [id number] 10/20/2020 09:05:29 10/20/2020 13:38:46 Administration of viral vaccine 37879596 Z23 [id number] MD LUCIA Anguiano MD [address] [place] [address],[facility] [place] [id number] 11/17/2020 09:23:04 11/17/2020 10:20:45 Administration of viral vaccine 36985739 Z23 [id number] MD LUCIA Anguiano MD [address] [facility], [place] [address] 05/16/2021 09:23:12 05/16/2021 12:16:36 Screening for malignant neoplasm of cervix 879008808 Z12.4 Screening mammography 24 467692 Z12.31 Screening for osteoporosis 321056998 N95.8 Menopausal syndrome 1237 18701 N95.1 Family his tory of malignant neoplasm of breast in first degree relative 490397026 Z80.3 Disorder of rectum 61517 04 K62.9 Atrophic vaginitis 46109 000 N95.2 [id number] MD LUCIA Anguiano MD [address] [place] [address],[facility] [place] [id number] 10/20/2021 09:08:39 10/20/2021 11:01:29 Osteopenia 107407038 M85.852 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 [id number] MD LUCIA Anguiano MD [address] [place] [address],[facility] [place] [id number] 05/17/2023 08:34:54 05/17/2023 09:28:59 Screening for malignant neoplasm of cervix 178231422 Z12.4 Screening mammography 24 391753 Z12.31 Screening for osteoporosis 280984441 N95.8 [id number] MD LUCIA Anguiano MD [address] [place] [address],[facility] [place] [address] 12/10/2024 09:22:35 12/10/2024 14:07:14 Cyst of vulva 52699162 N90.7 [id number] MD LUCIA Anguiano MD [address] [place] [address],[facility] [place] [id number] 05/18/2025 10:00:42 05/18/2025 12:02:32 Screening for malignant neoplasm of cervix 064439465 Z12.4 Screening mammography 24 196949 Z12.31 Screening for osteoporosis 968197722 N95.8 Health Concerns Section Related Observation LastModified by Organization Detai ls LastModified Time None Recorded Concern Status LastModified by Organization Details LastModified Time None Recorded Advance Directives Directive None Recorded Payers Insurance Date Sequence Insurance Name Policy Number Policy Martinez Covered Member ID Martinez Member ID Guarantor Name 05/15/2025 2 [place] [id number] Daisy Carver [id number] Daisy Carver 05/15/2025 1 [place] [employer] Daisy Carver [id number] Daisy Carver 12/10/2024 1 [place] [id number] Daisy Mehul [id number] Daisy Mehul 12/10/2024 1 [place] [id number] Daisy Garcia Mehul [id number] Daisy Mehul 12/10/2024 1 [place]MED[place]PL[place] PPO) [id number] Daisy Mehul [id number] Daisy Mehul 12/10/2024 1 [place]PP[place] [id number] Daisy Mehul [id number] Daisy Mehul Notes Date Note Type Note Provider Name and Address Organization Details Recorded Time 05/16/2021 text/html She is here for annual exam, had switched from full dose HRT, 4 times a week, to low dose HRT daily, and this is holding her well, she is not depressed or suicidal on this dose, she elects to continue this. She has developed mild rectal incontinence, is to see a specialist next month. She has regular dermatology exams, regular cystoscopy for follow up of her low malignant potential bladder tumor removed in 2018. Her daughter developed breast cancer treated with lumpectomy and RTx 18 months ago, her daughter is BRCA negative. ___ Note from 2019: She is here for annual exam, she is taking HRT 4 days a week, notes this controls her anxiety and other symptoms, she had weaned off for a month, two years ago, to see if she could tolerate being off the HRT, But I got suicidal so I started again! and her suicidal thougths, completely went away, She has noted wrosening of her urinary urgency starting around 2 years ago, but over the past 3-4 few months it has worsned to the point that If I get up from lying down then it jsut starts coming out nad I can't stop it, a lot of urine. This has david happening every day for a month or two.She had a negative cystoscopy 3 weeks ago, in follow up of her low malignant potential bladder tumor surgically removed 4 years ago. Lucia Huffman MD [address] [facility],[address], [place], [address], [employer] [facility], 05/16/2021 10:04:03 10/20/2021 text/html This visit is a phone telehealth visit. The patient consented to the visit by phone.The patient was at home at the time of the call and the provider and patient were the only people on the line.I was at [address] [facility], [address], [place], [place], at the time of the call. We are discussing her recent bone density that showed osteopenia of the hip, this is new.Her hip T score was -0.9 in 2013, which was similar to 2010, but now it is -1.7. She has been taking estradiol 0.5 mg tabs daily, since 2012. She does take a calcium supplement in the am, but does not really pay attention to how much calcium she is getting in her diet daily. She is a current every day smoker. Lucia Huffman MD [address] [facility],[address], [place], [address], [employer] [facility], 10/20/2021 09:50:05 05/17/2023 text/html She is here for annual, doing well. She stopped her half dose HRT last year and is doing well off of it. Note from 2020: She is here for annual exam, had switched from full dose HRT, 4 times a week, to low dose HRT daily, and this is holding her well, she is not depressed or suicidal on this dose, she elects to continue this.She has developed mild rectal incontinence, is to see a specialist next month.She has regular dermatology exams, regular cystoscopy for follow up of her low malignant potential bladder tumor removed in 2018. Her daughter developed breast cancer treated with lumpectomy and RTx 18 months ago, her daughter is BRCA negative. Lucia Huffman MD [address] [facility],[address], [place], [address], [place] - [facility], 05/17/2023 09:01:52 12/10/2024 text/html She is here for a complaint of a lump on her rectum.It has bene present for 3 to 5 months. It is slowly enlarging. She has not been here since 05/2023. Note from 05/2023: She is here for annual, doing well. She stopped her half dose HRT last year and is doing well off of it. Lucia Huffman MD [address] [facility],[address], [place], [address], [place] [facility], 12/10/2024 10:40:40 05/18/2025 text/html She is here for annual, doing well. __ Note from 2022: She is here for annual, doing well. She stopped her half dose HRT last year and is doing well off of it. Lucia Huffman MD [address], [place], [address], [place] [facility], 05/18/2025 10:23:39 OBGyn Episode No OBEpisode recorded.
== END 2025-06-30 10:31 | disposition home or self-care (01) ==
LOC: HO.HSMS 10:01
PROVIDERS: PCP Internal Medicine; Visit Provider Psychiatry & Neurology Neurology
DX: R25.1 Tremor, unspecified (principal); R26.9 Unspecified abnormalities of gait and mobility; M47.812 Spondylosis without myelopathy or radiculopathy, cervical region; M47.816 Spondylosis without myelopathy or radiculopathy, lumbar region
CPT/HCPCS: 99214; G2211

== ENCOUNTER → 2025-06-30 10:00 | Outpatient (BNVA) | payer MEDICARE, SELFPAY | PROVIDERS: PCP Internal Medicine; Visit Provider Psychiatry & Neurology Neurology | DX: R26.9 Unspecified abnormalities of gait and mobility (principal); M47.816 Spondylosis without myelopathy or radiculopathy, lumbar region; M47.812 Spondylosis without myelopathy or radiculopathy, cervical region; R25.1 Tremor, unspecified | CPT/HCPCS: 99212 ==